=== PATIENT | male | born 1980 | race Caucasian/White ===

== ENCOUNTER 2021-01-26 00:15 | Emergency (ER) | payer OTHER ==
[2021-01-26] MEDS ORDERED: Famotidine In NaCl 20 mg/50 ml Premix Bag ONE (00:19)
[2021-01-26] MEDS ORDERED: methylPREDNISolone Sod Succ/PF 125 MG/2 ML VIAL ONE (00:19)
== END 2021-01-26 01:10 | disposition home or self-care (01) ==
LOC: BURERS 00:15
DX: R06.4 Hyperventilation (principal); T78.40XA Allergy, unspecified, initial encounter; E78.5 Hyperlipidemia, unspecified; E78.00 Pure hypercholesterolemia, unspecified; Z87.891 Personal history of nicotine dependence
CPT/HCPCS: 96365; 96375; J2930